=== PATIENT | female | born 1970 | race Caucasian/White ===

== ENCOUNTER → 2017-08-27 | Day surgery (SDC) | payer OTHER ==
[~2017-08-27] VITALS: Ht 162.6 cm; Wt 82.6 kg
[~2017-08-27] MED LIST: VITAMIN B-121000 MC3 PO; ZOFRAN ODT4 MG PO
--- NOTE | 2017-08-27 16:18 | Operative Report ---
Operative/Inv Procedure Report Surgery Date: 08/27/17 Name of Procedure: cystocele repair with mesh, urethral sling, cystoscopy Pre-Operative Diagnosis: cystocele grade 3 and stress incontinence Post-Operative Diagnosis: same Estimated Blood Loss: scant (150cc) Surgeon/Conditioning Machine Operator: Mariza Colón MD Anesthesia: laryngeal mask airway Implants: vaginal mesh Complications: none Condition: stable Operative Indication: cystocele grade 3 and stress incontinence Operative/Procedure Note Note: Operative dictation on patient Yaneli sykes. She has a history of symptomatic vaginal bulge and stress urinary incontinence and she wished to proceed with cystocele repair with mesh and urethral sling. The risks of vaginal mesh was discussed as well as the risks benefits and alternatives of the surgery in general. All questions were answered. This was done in the office setting as well as the holding area. Patient was taken to the operating room placed on the operating table in the supine position. Timeout was performed. IV antibiotics were infused. Patient was placed in the dorsolithotomy position and she was prepped and draped in the standard sterile fashion after shaving the genitalia region. Graves catheter was placed in the bladder was drained. The Graves was clamped and placed on the patient's abdomen. Jolon retractor was placed to allow for excellent visualization. The cystocele was addressed first. 1% lidocaine was infiltrated into the anterior vaginal wall from the bladder neck to the cervix. The vaginal laps were created after this incised. Care was taken not to injure the bladder. Once the bladder was completely dissected free and the dissection was carried down to the retropubic space to the sacrospinous process on both sides. The ligament was cleaned off and the Capio thin device was used to place the Prolene sutures into the ligaments on the right and left side. The bladder neck sutures were then placed on the right and left side. The Restoril anterior mesh was then placed using these 4 sutures. Methylene blue 10 mL were administered at this time by anesthesia to check for the patency of the ureters later in this case. The mesh was secured at the bladder neck and at the proximal portion near the cervix with 2-0 vicryl suture. The mesh was seen to nicely reduce the cystocele. There area was copiously irrigated with bacitracin irrigation. Surgicel was placed into the retropubic space on the right and left side. Cystoscopy was then performed and the bladder was globally inspected. There was no mesh in the bladder or the urethra. The ureteral orifices were easily identified. Blue efflux was seen emanating with excellent flow on both sides. Graves was placed back into the bladder. The incision site was closed with 2-0 Vicryl running suture with interrupted interlocking sutures every third. Attention was then turned to the sling portion of the case. 1% lidocaine was infiltrated beneath the urethra. Vaginal flaps are created taking care not to injure the urethra. The Altis Sling kit was then opened and used to place the sling with the trochars provided. The sling was seen to be in a nice tension- free manner in a horizontal lie beneath the urethra. There was no mesh in the vaginal fornices. The tightening Prolene stitch was cut. Incision was closed with running locking 3-0 Vicryl suture. Cystoscopy again was performed and there was no mesh in the bladder wall or the urethra. Sponge and needle count were correct at the end of the case. Patient tolerated procedure well. She was transferred to the recovery room stable condition. Findings: no mesh in bladder,urethra or vag fornices good bilateral ureteral efflux Discharge Disposition: PACU
== END ==
LOC: STS 02:35
DX: N39.3 Stress incontinence (female) (male) (principal); N81.10 Cystocele, unspecified; R10.2 Pelvic and perineal pain; N39.41 Urge incontinence; N32.81 Overactive bladder; Z85.43 Personal history of malignant neoplasm of ovary; Z87.442 Personal history of urinary calculi
CPT/HCPCS: C1771; C9399; J0131; J0690; J1100; J2250; J2405; J2765